=== PATIENT | female | born 1995 | race Two or more races ===

== ENCOUNTER 2018-01-20 12:59 | Emergency (ER) | payer SELFPAY ==
[~2018-01-20] VITALS: Ht 165.1 cm; Wt 56.7 kg
[2018-01-20] MEDS ORDERED: NKM (13:17)
[2018-01-20 13:20] VITALS: BP 119/81
[2018-01-20] MEDS ORDERED: IBUPROFEN600 MG ORAL (13:36)
[2018-01-20] MEDS ORDERED: ROBAXIN-750750 MG PO (13:36)
[2018-01-20 13:47] VITALS: BP 119/81
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
== END 2018-01-20 14:07 | disposition home or self-care (01) ==
LOC: EMR 13:40
DX: S33.5XXA Sprain of ligaments of lumbar spine, initial encounter (principal); V43.52XA Car driver injured in collision with other type car in traffic accident, initial encounter; Y92.410 Unspecified street and highway as the place of occurrence of the external cause
CPT/HCPCS: 99282